=== PATIENT | female | born 1985 | race Caucasian/White ===

== ENCOUNTER 2020-10-19 11:16 | Outpatient (REF) | payer OTHER, SELFPAY ==
[2020-10-20 09:15] LABS: BV Int Neg Control Negative (Negative); BV Int Pos Control Positive (Positive)
== END 2020-10-19 11:17 | disposition home or self-care (01) ==
LOC: HO.LAB 11:16
PROVIDERS: PCP Hospitalist; Visit Provider Obstetrics & Gynecology
DX: Z01.419 Encounter for gynecological examination (general) (routine) without abnormal findings (principal); G43.109 Migraine with aura, not intractable, without status migrainosus
CPT/HCPCS: 87480; 87510; 87660

== ENCOUNTER 2021-02-01 10:40 | Outpatient (REF) | payer OTHER, SELFPAY ==
[2021-02-01 14:19] LABS: MANUAL DIFF FLAG NO
[2021-02-01 14:21] LABS: Basophils Percent Auto 0.4 % (0-2); Eosinophils Absolute Auto 0.1 X10*3/uL (0.0-0.4); Eosinophils Percent Auto 1.8 % (0-4); Hematocrit 42.7 % (37-47); Imm Gran Abs Auto 0.01 X10*3/uL (0.00-0.03); Imm Gran Pct Auto 0.2 % (0.0-0.4); Lymphocytes Absolute Auto 1.7 X10*3/uL (1.2-4.9); Mean Corpuscular HGB Conc 32.8 g/dl (31.0-35.0); Mean Corpuscular Hemoglobin 27.9 pg (27.0-33.0); Mean Corpuscular Volume 85.2 fL (80-98); Mean Platelet Volume 9.9 fL (9.4-12.3); Monocytes Absolute Auto 0.7 X10*3/uL (0.1-1.2); Monocytes Percent Auto 14.7 % (2-11); Neutrophils Percent Auto 44.9 % (45-73); Platelet Count 265 X10*3/uL (160-400); Red Blood Count 5.01 X10*6/uL (4.20-5.50); White Blood Count 4.6 X10*3/uL (4.8-10.8)
[2021-02-01 14:36] LABS: Glucose Urine UA NEG (NEG); Leukocyte Esterase Urine NEG (NEG); Nitrite Urine NEG (NEG); PH 7.5 (5.0-8.0); Specific Gravity - Urine 1.015 (1.005-1.025); Urine Blood NEG (NEG); Urine Ketones NEG (NEG); Urine Protein NEG (NEG-TRACE)
[2021-02-01 14:40] LABS: Appearance Urine CLEAR; Color Urine YELLOW
[2021-02-01 14:53] LABS: Alanine Aminotransferase 19 U/L (0-31); Albumin Level 4.5 g/dL (3.5-5.0); Alkaline Phosphatase 39 U/L (39-117); Anion Gap 10 (12-20); Aspartate Amino Transferase 17 U/L (5-31); Bilirubin Total 0.6 mg/dL (0.0-1.0); Blood Urea Nitrogen 14 mg/dL (9-16); Calcium 9.9 mg/dL (8.4-10.2); Carbon Dioxide 29 mmol/L (22-29); Chloride 106 mmol/L (96-108); Estimated Glomerular Filt Rate > 60; Glucose Fasting 89 mg/dL (60-99); Potassium 4.8 mmol/L (3.3-5.1); Sodium 140 mmol/L (135-145)
[2021-02-01 15:43] LABS: Folate 19.6 ng/mL (> or = 4.0); Vitamin B12 623 pg/mL (200-900)
== END 2021-02-01 10:41 | disposition home or self-care (01) ==
LOC: HO.WFDLDS 10:40
PROVIDERS: Visit Provider Nurse Practitioner Family
DX: R00.2 Palpitations (principal); R19.00 Intra-abdominal and pelvic swelling, mass and lump, unspecified site
CPT/HCPCS: 36415; 80053; 81003; 82306; 82607; 82746; 84443; 85025

== ENCOUNTER → 2021-02-22 12:56 | Outpatient (REF) | payer OTHER, SELFPAY ==
--- NOTE | 2021-02-22 13:00 | ECG_ITS ---
Hook-up date: 2021-02-22 13:08:00 Duration: 24:55:00 Test Indications: PALPITATIONS Medications: [id number] QRS complexes 3 Ventricular ectopics which represent <1 % of total QRS comp. 10 Supraventricular ectopics which represent <1 % of total QRS comp. * Paced QRS complexs which represent % of total QRS comp. VENTRICULAR ECTOPY 3 Isolated 0 Bigeminal Cycles 0 Couplets 0 Runs 0 Beats in Runs * Beats LONGEST at * BPM at :: -- * Beats FASTEST at * BPM at :: -- SUPRAVENTRICULAR ECTOPY 5 Isolated 0 Couplets 1 Runs 5 Beats in Runs 5 Beats LONGEST at 131 BPM at 06:45:30 2021-02-23 5 Beats FASTEST at 131 BPM at 06:45:30 2021-02-23 HEART RATES 49 MIN at 02:29:18 2021-02-23 74 AVG 128 MAX at 13:41:49 2021-02-22 LONGEST RR 1.3120 secs at 03:17:31 2021-02-23 S-T LEVELS Channel 1 - 128 mm at 13:08:00 2021-02-22 - 128 mm at 13:08:00 2021-02-22 Channel 2 - 128 mm at 13:08:00 2021-02-22 - 128 mm at 13:08:00 2021-02-22 Channel 3 - 128 mm at 03:22:71 -- - 128 mm at 03:22:71 Underlying rhythm is sinus; Average rate 74/min; range 49-128/min; Very rare PACs/PVCs; no sustained arrhythmias; Patient did not report any symptoms in the diary Referred By: Marcela Bear Overread By: SHU PRETTY
== END ==
LOC: HO.CARD 12:56
PROVIDERS: PCP Hospitalist; Visit Provider Nurse Practitioner Family
DX: R00.2 Palpitations (principal)
CPT/HCPCS: 93226

== ENCOUNTER 2021-02-26 09:23 | Outpatient (REF) | payer OTHER, SELFPAY ==
--- NOTE | ~2021-02-26 | US_ITS ---
EXAMINATION: US ABDOMEN LIMITED CLINICAL INFORMATION: Intra-abdominal and pelvic swelling, mass and lump. COMPARISON: None TECHNIQUE: Real-time imaging of the region of concern located in the upper abdominal wall left inferior to the rib cage. FINDINGS: No ultrasound abnormality is seen in the area of palpable abnormality. No hernia, soft tissue mass or fluid collection is seen. US/US abdomen limited IMPRESSION: No abnormality seen by ultrasound.
== END 2021-02-26 09:24 | disposition home or self-care (01) ==
LOC: HO.US 09:23
PROVIDERS: Visit Provider Nurse Practitioner Family
DX: R19.00 Intra-abdominal and pelvic swelling, mass and lump, unspecified site (principal)
CPT/HCPCS: 76705

== ENCOUNTER 2021-03-22 09:00 | Outpatient (REF) | payer OTHER, SELFPAY ==
--- NOTE | ~2021-03-22 | CT_ITS ---
EXAMINATION: CT ABDOMEN AND PELVIS WITH CONTRAST CLINICAL INFORMATION: Abdominal bulge. Rule out hernia. COMPARISON: Abdominal ultrasound 02/26/2021 TECHNIQUE: Multidetector volumetric images were obtained from the superior aspect of the liver through the pubic symphysis following administration 85 mL of Omnipaque 350 intravenous contrast. Sagittal and coronal reformatted images were obtained on the technologist's workstation. Oral contrast: Yes This CT examination was performed using dose optimization techniques as appropriate, variously including the following: *Automated exposure control *Adjustment of mA and/or kV according to patient size (this includes techniques or standardized protocols for targeted exams where dose is matched to indication/reason for exam; i.e. extremities or head) *Use of iterative reconstruction technique DLP: 370 mGy-cm FINDINGS: LUNG BASES: The visualized lung bases are unremarkable. LIVER, GALLBLADDER, AND BILIARY TREE: The liver is normal in size, shape, and attenuation. No focal hepatic lesion or biliary ductal dilatation is present. The gallbladder is unremarkable with no evidence of radiopaque gallstones, gallbladder wall thickening, or obvious pericholecystic inflammatory changes. PANCREAS: Unremarkable. SPLEEN: Unremarkable. ADRENAL GLANDS: Unremarkable. KIDNEYS AND URETERS: The kidneys are normal in size, shape, and attenuation. No hydronephrosis, hydroureter, or calculi seen. No perinephric stranding. BLADDER: Unremarkable. GASTROINTESTINAL TRACT: The small and large bowel are unremarkable. The appendix is unremarkable. ABDOMINAL WALL: There is diastasis of the rectus muscles. There is a small umbilical hernia containing fat. No other hernia is seen. LYMPH NODES: Normal. VASCULAR: Unremarkable. PELVIC VISCERA: Unremarkable. OSSEOUS STRUCTURES: Unremarkable. CT/CT abdomen pelvis w con IMPRESSION: Diastasis of the rectus muscles and small umbilical hernia containing fat. No other hernia is seen.
[2021-03-22] MEDS: iohexoL 350 MG/ML 100 ML INFUS..BTL IV (11:37)
[2021-03-22] MEDS: Barium Sulfate Oral (Mocha) 450 ML ORAL.SUSP 900 ML PO (11:37)
== END 2021-03-22 09:01 | disposition home or self-care (01) ==
LOC: HO.CT 09:00
PROVIDERS: PCP Family Medicine; Visit Provider Family Medicine
DX: R19.00 Intra-abdominal and pelvic swelling, mass and lump, unspecified site (principal)
CPT/HCPCS: 74177; Q9967

== ENCOUNTER → 2021-04-19 11:18 | Outpatient (BNVA) | payer OTHER, SELFPAY | PROVIDERS: PCP Family Medicine; Visit Provider Obstetrics & Gynecology ==

== ENCOUNTER → 2021-05-08 08:54 | Outpatient (BNVA) | payer OTHER, SELFPAY | PROVIDERS: PCP Family Medicine; Referring Provider Family Medicine; Visit Provider Surgery ==

== ENCOUNTER 2021-10-22 09:33 | Outpatient (REF) | payer OTHER, SELFPAY ==
[2021-10-23 09:04] LABS: BV Int Neg Control Negative (Negative); BV Int Pos Control Positive (Positive)
[2021-10-25 05:31] LABS: HPV mRNA E6/E7 rflx Not Detected (Not Detected)
== END 2021-10-22 09:34 | disposition home or self-care (01) ==
LOC: HO.LAB 09:33
PROVIDERS: Visit Provider Advanced Practice Midwife
DX: Z01.411 Encounter for gynecological examination (general) (routine) with abnormal findings (principal); Z11.51 Encounter for screening for human papillomavirus (HPV); G43.109 Migraine with aura, not intractable, without status migrainosus; N89.8 Other specified noninflammatory disorders of vagina; Z20.2 Contact with and (suspected) exposure to infections with a predominantly sexual mode of transmission
CPT/HCPCS: 87480; 87510; 87624; 87660; 88142

== ENCOUNTER 2022-08-30 09:12 | Outpatient (REF) | payer OTHER, SELFPAY ==
[2022-08-30 11:49] LABS: Hematocrit 42.7 % (37.0-47.0); Hemoglobin 14.3 g/dl (12.0-16.0); Mean Corpuscular HGB Conc 33.5 g/dl (31.0-35.0); Mean Corpuscular Hemoglobin 27.9 pg (27.0-33.0); Mean Corpuscular Volume 83.2 fL (80.0-98.0); Platelet Count 306 X10*3/uL (160-400); Red Blood Count 5.13 X10*6/uL (4.20-5.50); Red Cell Distribution Width 11.8 % (11.0-16.0); White Blood Count 5.7 X10*3/uL (4.8-10.8)
[2022-08-30 13:05] LABS: Alanine Aminotransferase 11 U/L (0-31); Albumin Level 4.5 g/dL (3.5-5.0); Alkaline Phosphatase 43 U/L (39-117); Anion Gap 13 (12-20); Aspartate Amino Transferase 12 U/L (5-31); Bilirubin Total 0.8 mg/dL (0.0-1.0); Blood Urea Nitrogen 14 mg/dL (9-16); Calcium 9.8 mg/dL (8.4-10.2); Carbon Dioxide 25 mmol/L (22-29); Chloride 106 mmol/L (96-108); Cholesterol 186 mg/dL; Estimated Glomerular Filt Rate > 60; Glucose Fasting 82 mg/dL (60-99); HDL Cholesterol 73 mg/dL; LDL Cholesterol Calculated 104 mg/dl; Potassium 4.3 mmol/L (3.3-5.1); Sodium 140 mmol/L (135-145); TSH reflex Free T4 0.83 uIU/mL (0.32-4.0); Total Protein 7.1 g/dL (6.5-8.0); Triglycerides 48 mg/dL
== END 2022-08-30 09:13 | disposition home or self-care (01) ==
LOC: HO.WFDLDS 09:12
PROVIDERS: Visit Provider Hospitalist
DX: Z00.00 Encounter for general adult medical examination without abnormal findings (principal)
CPT/HCPCS: 36415; 80053; 80061; 84443; 85027

== ENCOUNTER → 2022-10-29 11:00 | Outpatient (BNVA) | payer OTHER, SELFPAY | PROVIDERS: PCP Hospitalist; Visit Provider Advanced Practice Midwife | DX: Z13.89 Encounter for screening for other disorder (principal) ==

== ENCOUNTER 2023-07-29 16:07 | Outpatient (REF) | payer OTHER, SELFPAY ==
--- NOTE | ~2023-07-29 | MM_ITS ---
EXAMINATION: MM SCREENING DIGITAL BREAST TOMOSYNTHESIS, BILATERAL CLINICAL INFORMATION: Screening. Asymptomatic. COMPARISON: Mammography: There are no prior mammograms for comparison. This is a baseline study. TECHNIQUE: Digital breast tomosynthesis is performed in both the craniocaudal and mediolateral oblique views along with computer-aided detection (CAD). Synthesized 2D images are generated from the tomosynthesis. FINDINGS: The breasts are heterogeneously dense, which may obscure small masses (ACR BI-RADS breast composition Category c). There are no significant masses, abnormal calcifications, or other abnormalities. MM/MM tomosynthesis screening BI IMPRESSION: No mammographic evidence of malignancy. ASSESSMENT: BI-RADS BI-RADS 1 - Negative RECOMMENDATION: Routine annual mammography screening. 1 year F/U This examination should not preclude the clinical evaluation of a suspicious palpable abnormality. This patient's information was entered into a reminder system with a target due date for their next mammogram.
== END 2023-07-29 16:08 | disposition home or self-care (01) ==
LOC: HO.MAMMO 16:07
PROVIDERS: Visit Provider Hospitalist
DX: Z12.31 Encounter for screening mammogram for malignant neoplasm of breast (principal)
CPT/HCPCS: 77063; 77067

== ENCOUNTER → 2023-07-29 16:30 | Outpatient (BNV) | payer OTHER, SELFPAY | PROVIDERS: Visit Provider Radiology Diagnostic Radiology | DX: Z12.31 Encounter for screening mammogram for malignant neoplasm of breast (principal) | CPT/HCPCS: 77063; 77067 ==

== ENCOUNTER 2023-10-31 09:02 | Outpatient (AMB) | payer OTHER, SELFPAY ==
[2023-10-31 09:04] VITALS: BP 112/62; BMI 24.0
--- NOTE | 2023-10-31 09:04 | A.OFFVIS_ITS ---
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 Allergies No Known Allergies [No Known Allergies*] Allergy (Verified 10/31/23 09:04) Medication List - Last Reconciled 10/31/23 by Sridevi Le CNM norethindrone (contraceptive) 0.35 mg PO DAILY Is last menstrual period known: Yes Last menstrual period: 10/31/23 Do you need a note to return to daycare/school/sports/work: No HPI 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 After that that maybe long and be unusual it is always related to a missed pill which 99% of the time she is very good about. She is very careful about prevention if that occurs and she does not feel she is at risk at all She lifts weights and eats well and is healthy. Every now and then she has had pain in her axilla that was of concern for her and she talk to her primary or someone she saw an urgent care and then she called and got her mammogram soon after she turned 38 and was assured that everything was totally fine and there was no worrisome finding other than a note that she has dense breasts. That is of some concern to her but she has no family history or close family history of breast cancer. Her primary care provider left so she is trying to figure out where she wants to go for primary care. Her last Pap smear was normal and she has never had an abnormal 1 she has no concerns whatsoever about infection and no abnormal discharge. she is bleeding now this is when her period would of been due it is dark old blood. Also she sometimes gets migraines with ocular features but they are not very often and she manages them and has not seen the need for further evaluation or treatment. 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 Current occupational exposures/hazards: No Sexual orientation: Straight/Heterosexual Gender identity: Female Female Reproductive History Menstrual Age of Menarche: 14 Duration of menses: 3-5 days Date of last menstrual period: 10/31/23 control method: pills Total pregnancies: 2 Full term: 2 Date of last pap smear: 10/23/21 (negative, previous pap 2017,neg.) History of abnormal pap smear: No Physical Exam Vital Signs: Last Vital Signs BP 112/62 10/31/23 09:04 BMI result Body Mass Index 24.0 Const General: healthy appearing, comfortable, no acute distress, well developed and alert Nutritional Appearance: average body habitus Orientation/consciousness: patient oriented x3 Limitations: no limitations HEENT Head: Yes normocephalic Neck Neck: Yes normal visual inspection Chest Chest palpation & inspection: normal inspection of the chest Breast/axilla inspection: normal inspection of the breasts and normal inspection of the axillae Breast/axilla palpation: normal palpation of the breasts and normal palpation of the axillae Resp Effort & Inspection: normal respiratory effort GI Inspection: Yes normal to inspection, No Abdominal wall edema and No distended Palpation (GI): Soft to palpation and nontender Other: Normal speculum exam vagina pink moist with dark brown menstrual bleeding. Cervix multiparous posterior uterus small anteverted mobile nontender adnexa nontender good tone with Kegel General: Yes bladder normal to palpation External Female Exam: normal external appearance and normal appearance of the urethra Speculum Exam - Vagina: normal appearance of the vagina, normal palpation and normal vaginal discharge Speculum Exam - Cervix: normal appearance of the cervix, normal palpation and nontender Bimanual exam- vagina & uterus: normal bimanual exam, normal palpation, uterine size normal, bladder normal to palpation, consistency normal, normal palpation, uterine mobility normal, uterine shape normal, No Cervical tenderness present, non-tender and no cervical motion tenderness Bimanual Exam- Adnexa, other: normal adnexae, no masses, normal and No adnexal tenderness Neuro General: patient oriented x3 Assessment & Plan Assessment & Plan (1) Well woman exam with routine gynecological exam: Code(s): Z01.419 - Encounter for gynecological examination (general) (routine) without abnormal findings (2) Surveillance for control, oral contraceptives: Code(s): Z30.41 - Encounter for surveillance of contraceptive pills (3) Cervical cancer screening: Comment: 10/22/2021 Pap equals negative, negative HPV Code(s): Z12.4 - Encounter for screening for malignant neoplasm of cervix (4) control counseling: Code(s): Z30.09 - Encounter for other general counseling and advice on contraception (5) Breast cancer screening: Code(s): Z12.39 - Encounter for other screening for malignant neoplasm of breast Plan -----Discussed in this visit the following: healthy balanced diet, regular and consistent exercise, getting recommended health screens, doing the best she can for her particular health concerns, kegel exercises, pap smear screening and f ollowup recommendations, mammography screening and SBE, normal changes in cycles in her life stage--- . Reviewed the pills she has been getting them every month at the pharmacy but I have prescribed them in 3 month increments it may be related to her insurance and she is going to check that out. I refilled her prescription again three-month increments with 4 refills. Discussed the possibilities to explain her discomfort in her axilla she has been trying to pay attention it seems to happen regardless of weight lifting which is what she was thinking might BV issue she also sleeps with her right arm above her head in wonders if that may be related she does not have any other arm pain or shoulder pain and the pain is described as an ache which sounds more consistent with an nerve pain discussed the possible positioning connection. Meanwhile she did get her mammogram discussed that usually if there has no close family history of cancer or any other high-risk concern other studies would not be recommended necessarily. She is going to be continuing her search for a primary care provider. Medications: Refilled norethindrone (contraceptive) start day 1 of menstrual cycle 0.35 mg PO DAILY 84 tabs 4RF G43.109 - Migraine with aura, not intractable, without status migrainosus, Z30.09 - Encounter for other general counseling and advice on contraception Coding Level of Care Code Est Pt Prev Care 40-64y(08237) Diagnoses Well woman exam with routine gynecological exam Z01.419 Surveillance for control, oral contraceptives Z30.41 Cervical cancer screening Z12.4 control counseling Z30.09 Breast cancer screening Z12.39
== END 2023-10-31 10:09 | disposition home or self-care (01) ==
LOC: HO.HWSM 09:02
PROVIDERS: Visit Provider Advanced Practice Midwife
DX: Z01.419 Encounter for gynecological examination (general) (routine) without abnormal findings (principal); Z30.41 Encounter for surveillance of contraceptive pills; Z12.4 Encounter for screening for malignant neoplasm of cervix; Z30.09 Encounter for other general counseling and advice on contraception; Z12.39 Encounter for other screening for malignant neoplasm of breast
CPT/HCPCS: 99396

== ENCOUNTER → 2023-10-31 09:02 | Outpatient (BNVA) | payer OTHER, SELFPAY | PROVIDERS: Visit Provider Advanced Practice Midwife ==

== ENCOUNTER 2024-05-21 15:42 | Outpatient (AMB) | payer OTHER, SELFPAY ==
--- NOTE | 2024-05-21 15:55 | A.OFFPC_ITS ---
Vital Signs 05/21/24 15:57 Height 5 ft 5 in Weight 148 lb BMI 24.6 BP 122/60 Blood Pressure Location Rt brachial Position Sitting Respiration 12 Pulse 78 Pulse Source Pulse Oximeter Pulse Oximetry (%) 100 Oxygen Delivery Method Room Air Intake Visit Reasons: SD/SV/Annual Exam Intake Note: Patient reports she has been getting muscle cramping in bilateral lower and upper legs. Patient reports feeling pain under her arms- armpit area. Patient reports she would like yearly labs ordered to check vitamins. 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 Accompanied by: Self / Same As Patient Allergies No Known Allergies [No Known Allergies*] Allergy (Verified 05/21/24 15:59) Tobacco use date assessed: 05/21/24 Dental Screening Dental Screen Date: 05/21/24 Did you have a dental visit in the last 12 months?: Yes Did you have a dental problem in the last 6 months where you did not have access to dental care?: No Was dental information given to patient?: Patient has dentist HPI HPI Comments History of Present Illness Details 39 year old female with a past medical h istory of migraines presenting to [facility] care Concerns -Reports muscle cramping in bilateral lo wer and upper legs. Not restless. Crampy, sore. No significant spasms. Has chronic low back discomfort, not severe. No numbness, tingling or weakness in the legs/feet -Patient reports feeling fullness and pa in in her underarms. Denies pimples, cysts or drainage -Patient reports that menses have change d over the past few years. She gets more pain, more clotting. Still menstruating monthly Her pediatric assistant left the practice because they closed. She would like a new referral Her mammogram is up to date ROS see HPI PHYSICAL EXAM: GENERAL: Alert and oriented x 3. NAD EYES: EOMI. Anicteric. HENT: Moist mucous membranes. No scleral icterus. No cervical lymphadenopathy. LUNGS: Clear to auscultation bilaterally. CARDIOVASCULAR: Regular rate and rhythm. No murmur. No JVD. ABDOMEN: Soft, non-tender +bs EXTREMITIES: No edema. Non-tender. SKIN: There is axillary fullness and heterogeneity. No skin infection NEUROLOGIC: No focal neurological deficits. CN II-XII grossly intact PSYCHIATRIC: Cooperative. Appropriate mood and affect. 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 1. Little interest or pleasure in doing things: not at all 2. Feeling down, depressed, or hopeless: not at all 3. Trouble falling or staying asleep, or sleeping too much: not at all 4. Feeling tired or having little energy: not at all 5. Poor appetite or overeating: not at all 6. Feeling bad about yourself - or that you are a failure or have let yourself or your family down: not at all 7. Trouble concentrating on things, such as reading the newspaper or watching television: not at all 8. Moving or speaking so slowly that other people could have noticed. Or the opposite - being so fidgety or restless that you have been moving around a lot more than usual: not at all 9. Thoughts that you would be better off or of hurting yourself in some way: not at all Total score: 0 Depression Screening Interpretation: Negative Depression Screening Done: Yes 14719 - PHQ-9 Billing: Yes Source: Developed by Drs. Burt Magana, Teressa Bernard, Cesar Greenfield and colleagues, with an educational fatoumata from [employer]. Thrive Questionnaire Date Thrive assessed: 05/20/24 I am a: Patient What is your living situation today?: I have a steady place to live Within the past 12 months, did the food you bought not last and you didn't have the money to get more?: Never true Within the past 12 months, did you worry whether your food would run out before you got money to buy more?: Never true Do you have trouble paying for medicines?: No Do you have trouble getting transportation to medical appointments?: No Do you have trouble paying your heating and electricity bill?: No Do you have trouble taking care of your child, family member or friend?: No Do you have trouble with day-to-day activities such as bathing, preparing meals, shopping, managing finances, etc.?: No Are you currently unemployed and looking for a job?: No Are you interested in more education?: No Please select the resources that you would like help with: None Currently or been in a relationship where the following occur: No concerns reported THRIVE Score: 0 AUDIT C Alcohol Use Questionnaire (AUDIT-C) 1. How often do you have a drink containing alcohol?: 2-4 times a month 2. How many drinks containing alcohol do you have on a typical day when you are drinking?: 1 or 2 3. How often do you have six or more drinks on one occasion?: Never Total Score: 2 ANNABELLE-7 AMB Questionnaire ANNABELLE-7 Feeling nervous, anxious, or on edge: 0 = Not at all Not being able to stop or control worryin = Not at all Worrying too much about different things: 0 = Not at all Trouble relaxin = Not at all Being so restless that it is hard to sit still: 0 = Not at all Becoming easily annoyed or irritable: 0 = Not at all Feeling afraid as if something awful might happen: 0 = Not at all Total ANNABELLE-7 score (0-4 normal; 5-9 mild; 10-14 moderate; 15-21 severe): 0 Source: Developed by Drs. Burt Magana, Teressa Bernard, Cesar Greenfield and colleagues, with an educational fatoumata from [employer]. Physical exam (Primary Care) Vital Signs: Last Vital Signs Pulse 78 05/21/24 15:57 Resp 12 05/21/24 15:57 BP 122/60 05/21/24 15:57 Pulse Ox 100 05/21/24 15:57 Oxygen Delivery Method Room Air 05/21/24 15:57 BMI result Body Mass Index 24.6 Tobacco/Smoking Status: Tobacco use Status Tobacco use date assessed 05/21/24 05/21/24 16:03 Patient Tobacco Use Status Never used Tobacco 05/21/24 15:57 e-Cigarette/Vaping Use Never Used 05/21/24 16:03 PHQ-9: PHQ-9 Score PHQ-9: Total score 0 05/25/24 12:41 Depression Screening Interpretation: Negative Thrive Assessment: Date of Thrive Assessment Date Thrive assessed 05/20/24 05/21/24 15:57 Currently or been in a relationship where the following occur: No concerns reported Assessment and Plan Assessment & Plan (1) Encounter to establish care: Code(s): Z76.89 - Persons encountering health services in other specified circumstances Plan: 39 year old female presenting to establish care. Past medical, surgical, social and family history reviewed. Concerns addressed, work up (2) Abnormal menses: Code(s): N92.6 - Irregular menstruation, unspecified Plan: Pelvis u/s ordered. referral to science teacher (3) Leg cramps: Code(s): R25.2 - Cramp and spasm Plan: Labs ordered. Lumbar xray ordered Orders: Orders Complete Blood Count Auto Diff Today M54.50 - Low back pain, unspecified, M79.661 - Pain in right lower leg, M79.662 - Pain in left lower leg, R25.2 - Cramp and spasm Hemoglobin A1c Today M54.50 - Low back pain, unspecified, M79.661 - Pain in right lower leg, M79.662 - Pain in left lower leg, R25.2 - Cramp and spasm IRON PROFILE Today M54.50 - Low back pain, unspecified, M79.661 - Pain in right lower leg, M79.662 - Pain in left lower leg, R25.2 - Cramp and spasm XR lumbar spine 2-3V 05/21/24 M54.50 - Low back pain, unspecified, M79.661 - Pain in right lower leg, M79.662 - Pain in left lower leg, R25.2 - Cramp and spasm TSH reflex Free T4 Today N92.6 - Irregular menstruation, unspecified US chest 05/21/24 M79.621 - Pain in right upper arm, M79.622 - Pain in left upper arm Comprehensive Met. Panel Today M54.50 - Low back pain, unspecified, M79.661 - Pain in right lower leg, M79.662 - Pain in left lower leg, R25.2 - Cramp and spasm Lipid Panel Today M54.50 - Low back pain, unspecified, M79.661 - Pain in right lower leg, M79.662 - Pain in left lower leg, R25.2 - Cramp and spasm Magnesium Today M54.50 - Low back pain, unspecified, M79.661 - Pain in right lower leg, M79.662 - Pain in left lower leg, R25.2 - Cramp and spasm Creatine Kinase Total Today M54.50 - Low back pain, unspecified, M79.661 - Pain in right lower leg, M79.662 - Pain in left lower leg, R25.2 - Cramp and spasm pelvic and transvaginal 05/21/24 N92.6 - Irregular menstruation, unspecified Coding Level of Care Code New Pt Level 4 (19597) Complex EM visit Add On G2211 Diagnoses Encounter to establish care Z76.89 Abnormal menses N92.6 Leg cramps R25.2
[2024-05-21 15:57] VITALS: BP 122/60; PULSE 78; RESP 12; O2SAT 100; BMI 24.6
== END 2024-05-21 16:49 | disposition home or self-care (01) ==
PROVIDERS: PCP Family Medicine; Visit Provider Internal Medicine
DX: Z76.89 Persons encountering health services in other specified circumstances (principal); N92.6 Irregular menstruation, unspecified; R25.2 Cramp and spasm
CPT/HCPCS: 99204

== ENCOUNTER 2024-05-25 07:40 | Outpatient (REF) | payer OTHER, SELFPAY ==
[2024-05-25 11:11] LABS: MANUAL DIFF FLAG NO
[2024-05-25 11:17] LABS: Basophils Percent Auto 0.4 % (0-2); Eosinophils Absolute Auto 0.1 X10*3/uL (0.0-0.4); Eosinophils Percent Auto 2.1 % (0-4); Hemoglobin 13.8 g/dl (12.0-16.0); Imm Gran Abs Auto 0.02 X10*3/uL (0.00-0.03); Imm Gran Pct Auto 0.4 % (0.0-0.4); Lymphocytes Absolute Auto 1.4 X10*3/uL (1.2-4.9); Lymphocytes Percent Auto 27.3 % (20-40); Mean Corpuscular HGB Conc 33.7 g/dl (31.0-35.0); Mean Corpuscular Hemoglobin 28.2 pg (27.0-33.0); Mean Corpuscular Volume 83.8 fL (80.0-98.0); Mean Platelet Volume 9.4 fL (9.4-12.3); Monocytes Absolute Auto 0.5 X10*3/uL (0.1-1.2); Monocytes Percent Auto 9.6 % (2-11); Neutrophils Absolute Auto 3.1 x10*3/uL (2.0-8.3); Neutrophils Percent Auto 60.2 % (45-73); Platelet Count 245 X10*3/uL (160-400); Red Blood Count 4.89 X10*6/uL (4.20-5.50); Red Cell Distribution Width 11.9 % (11.0-16.0); White Blood Count 5.2 X10*3/uL (4.8-10.8)
[2024-05-25 11:29] LABS: Estimated Average Glucose 103 mg/dL; Hemoglobin A1c % 5.2 % (<6.0)
[2024-05-25 12:22] LABS: Alanine Aminotransferase 12 U/L (0-31); Albumin Level 4.2 g/dL (3.5-5.0); Alkaline Phosphatase 38 U/L (39-117); Anion Gap 11 (12-20); Aspartate Amino Transferase 13 U/L (5-31); Bilirubin Total 0.7 mg/dL (0.0-1.0); Blood Urea Nitrogen 12 mg/dL (9-16); Calcium 9.4 mg/dL (8.4-10.2); Carbon Dioxide 25 mmol/L (22-29); Chloride 105 mmol/L (96-108); Cholesterol 178 mg/dL (<200); Estimated Glomerular Filt Rate > 60; Glucose Random 75 mg/dL (60-115); HDL Cholesterol 72 mg/dL (>40); Iron 149 mcg/dL (30-160); LDL Cholesterol Calculated 99 mg/dL (<100); Magnesium 1.9 mg/dL (1.6-2.6); Percent Iron Saturation 53 % (15-50); Potassium 3.8 mmol/L (3.3-5.1); Sodium 137 mmol/L (135-145); TSH reflex Free T4 0.64 uIU/mL (0.32-4.0); Total Iron Binding Capacity 279 mcg/dL (228-428); Total Protein 6.8 g/dL (6.5-8.0); Triglycerides 37 mg/dL (<150); Unsaturated Iron Binding 130 ug/dL
== END 2024-05-25 07:41 | disposition home or self-care (01) ==
LOC: HO.WFDLDS 07:40
PROVIDERS: Visit Provider Internal Medicine
DX: M79.661 Pain in right lower leg (principal); M79.662 Pain in left lower leg; N92.6 Irregular menstruation, unspecified; R25.2 Cramp and spasm; M54.50 Low back pain, unspecified; E83.19 Other disorders of iron metabolism
CPT/HCPCS: 36415; 80053; 80061; 81256; 82550; 83036; 83540; 83735; 84443; 85025

== ENCOUNTER 2024-06-02 11:21 | Outpatient (REF) | payer OTHER, SELFPAY ==
--- NOTE | ~2024-06-02 | US_ITS ---
EXAMINATION: US PELVIS COMPLETE CLINICAL INFORMATION: N92.6 - Irregular menstruation, unspecified COMPARISON: None TECHNIQUE: Transabdominal and transvaginal imaging was performed. FINDINGS: The uterus is of normal size and echogenicity measuring 12.2 x 5.4 x 7.9 cm. A regular homogeneous endometrium is identified measuring 1.2 cm. Nabothian cysts in the cervix. The right ovary measures 5.5 x 2.6 x 5.2 cm. The right ovary is unremarkable for a 4.3 cm unilocular simple ovarian cyst, no follow-up imaging recommended. The left ovary was not identified sonographically, per bailiff report surgically absent. There is no pelvic free fluid. US/US pelvic and transvaginal IMPRESSION: * Unremarkable sonographic appearance of the uterus. * The left ovary was not identified sonographically, per bailiff report surgically absent. A 4.3 cm unilocular simple ovarian right cyst, no follow-up imaging recommended. Electronically signed by: Avis Guerra MD 06/07/2024 07:32 PM EDT
== END 2024-06-02 11:22 | disposition home or self-care (01) ==
LOC: HO.US 11:21
PROVIDERS: PCP Family Medicine; Visit Provider Internal Medicine
DX: N92.6 Irregular menstruation, unspecified (principal)
CPT/HCPCS: 76830; 76856

== ENCOUNTER 2024-06-08 13:52 | Outpatient (REF) | payer OTHER, SELFPAY ==
--- NOTE | ~2024-06-08 | US_ITS ---
EXAMINATION: Ultrasound extremity nonvascular CLINICAL INFORMATION: Bilateral axillary fullness. COMPARISON: No similar priors. TECHNIQUE: Targeted evaluation of the area of clinical concern within the bilateral axillary regions. FINDINGS: No discrete abnormality in the right axillary region. In the left axillary region, there is a 1.7 x 1.1 x 0.8 cm nonaggressive appearing lymph node with reniform shape, preserved fatty judie and normal appearing cortex. US/US extremity nonvascular gautam IMPRESSION: 1. No discrete abnormality in the right axillary region. 2. Normal-appearing lymph node in the left axillary region, most likely reactive in nature. Recommend clinical correlation and attention on follow-up as warranted. Electronically signed by: Flor Castanon MD 06/10/2024 03:59 PM EDT
== END 2024-06-08 13:53 | disposition home or self-care (01) ==
LOC: HO.US 13:52
PROVIDERS: PCP Family Medicine; Visit Provider Internal Medicine
DX: M79.621 Pain in right upper arm (principal); M79.622 Pain in left upper arm
CPT/HCPCS: 76882

== ENCOUNTER 2024-07-09 09:50 | Outpatient (REF) | payer OTHER, SELFPAY ==
--- NOTE | ~2024-07-09 | XR_ITS ---
EXAMINATION: XR LUMBOSACRAL SPINE CLINICAL INFORMATION: Right lower extremity pain. COMPARISON: None available. TECHNIQUE: Three views of the lumbosacral spine. FINDINGS: Rudimentary ribs, T12. No acute cortical disruption or malalignment. No lytic or blastic lesions. Mild S-shaped curvature of the lower lumbar spine. XR/XR lumbar spine 2-3V IMPRESSION: No acute fracture or listhesis. Electronically signed by: Sly Gillette MD 07/09/2024 10:42 AM EDT
== END 2024-07-09 09:51 | disposition home or self-care (01) ==
LOC: HO.XRAY 09:50
PROVIDERS: PCP Internal Medicine; Visit Provider Internal Medicine
DX: M79.661 Pain in right lower leg (principal); M79.662 Pain in left lower leg; R25.2 Cramp and spasm; M54.50 Low back pain, unspecified
CPT/HCPCS: 72100

== ENCOUNTER → 2024-07-09 09:55 | Outpatient (BNV) | payer OTHER, SELFPAY | PROVIDERS: PCP Internal Medicine; Visit Provider Radiology Diagnostic Radiology | DX: M79.606 Pain in leg, unspecified (principal) | CPT/HCPCS: 72100 ==

== ENCOUNTER → 2024-07-16 16:34 | Outpatient (BNVA) | payer OTHER, SELFPAY | PROVIDERS: PCP Internal Medicine; Visit Provider Internal Medicine ==

== ENCOUNTER → 2024-07-16 16:34 | Outpatient (AMB) | payer OTHER, SELFPAY ==
--- NOTE | 2024-07-16 16:33 | A.OFFPC_ITS ---
Intake Visit Reasons: Discuss xray Allergies No Known Allergies [No Known Allergies*] Allergy (Verified 05/21/24 15:59) Tobacco use date assessed: 05/21/24 Dental Screening Dental Screen Date: 05/21/24 HPI HPI Comments History of Present Illness Details 39 year old female with a past medical h istory of migraines, muscle cramping, presenting for follow up At her last visit she had the following concerns -Reports muscle cramping in bilateral lo wer and upper legs. Not restless. Crampy, sore. No significant spasms. Has chronic low back discomfort, not severe. No numbness, tingling or weakness in the legs/feet-she had xray of the lumbar spine performed. This was normal with the exception of mild lumbosacral curvature. -Patient reports feeling fullness and pa in in her underarms. Denies pimples, cysts or drainage. Her ultrasound showed a slightly enlarged but morphologically normal lymph node -Patient reports that menses have change d over the past few years. She gets more pain, more clotting. Still menstruating monthly. She had pelvic ultrasound with benign right ovary cyst and non visualization of the left ovary. 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 at her last visit Her mammogram is up to date ROS see HPI PHYSICAL EXAM: telehealth [facility] Medical History Migraine headache with aura Asthma Surgical History Dermoid cyst History of left oophorectomy Family History Father HTN (hypertension) Pacemaker Mother HTN (hypertension) Maternal Grandfather Colon cancer Social History Housing: House Alcohol intake: current Alcohol intake frequency: a few times a week Patient Tobacco Use Status: Never used Tobacco e-Cigarette/Vaping Use: Never Used service: No Current occupational status: employed 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 Current occupational exposures/hazards: No Sexual orientation: Straight/Heterosexual Gender identity: Female Cognitive needs: No Hearing needs: No Vision needs: No Female Reproductive History Menstrual Age of Menarche: 14 Questionnaire Thrive Questionnaire Date Thrive assessed: 05/20/24 I am a: Patient What is your living situation today?: I have a steady place to live Within the past 12 months, did the food you bought not last and you didn't have the money to get more?: Never true Within the past 12 months, did you worry whether your food would run out before you got money to buy more?: Never true Do you have trouble paying for medicines?: No Do you have trouble getting transportation to medical appointments?: No Do you have trouble paying your heating and electricity bill?: No Do you have trouble taking care of your child, family member or friend?: No Do you have trouble with day-to-day activities such as bathing, preparing meals, shopping, managing finances, etc.?: No Are you currently unemployed and looking for a job?: No Are you interested in more education?: No Please select the resources that you would like help with: None Currently or been in a relationship where the following occur: No concerns reported THRIVE Score: 0 Physical exam (Primary Care) Tobacco/Smoking Status: Tobacco use Status Tobacco use date assessed 05/21/24 07/16/24 16:33 Patient Tobacco Use Status Never used Tobacco 07/16/24 16:33 e-Cigarette/Vaping Use Never Used 07/16/24 16:33 Thrive Assessment: Date of Thrive Assessment Date Thrive assessed 05/20/24 07/16/24 16:33 Currently or been in a relationship where the following occur: No concerns reported Telehealth Telehealth Telehealth Platform: [facility] Location of provider rendering services: practice address Location of patient: address on file Patient Identification confirmed using: Name, : Yes Telehealth method: voice only Patient verbally consented to treatment: Yes Patient verbally consented to billing insurance company: Yes Patient informed of any privacy concerns related to visit: Yes Minutes spent on Phone/Video with Pt.: 33 Coding Level of Care Code Est Pt Level 4 (80534) Diagnoses Leg cramps R25.2 Pain in left axilla M79.622 Assessment & Plan Assessment & Plan (1) Leg cramps: Code(s): R25.2 - Cramp and spasm Category: Medical Plan: Discussed unlike due to low back curvature. Did encourage visit with chiropractor for consultation (2) Pain in left axilla: Code(s): M79.622 - Pain in left upper arm Category: Medical Plan: Resolved. Can repeat imaging if swelling recurs
== END ==
LOC: HO.HMCFM 16:34
PROVIDERS: PCP Internal Medicine; Visit Provider Internal Medicine
DX: R25.2 Cramp and spasm (principal); M79.622 Pain in left upper arm

== ENCOUNTER 2024-08-25 14:33 | Outpatient (REF) | payer OTHER, SELFPAY | END 2024-08-25 14:34 | disposition home or self-care (01) | LOC: HO.MAMMO 14:33 | PROVIDERS: PCP Internal Medicine; Visit Provider Internal Medicine | DX: Z12.31 Encounter for screening mammogram for malignant neoplasm of breast (principal) | CPT/HCPCS: 77063; 77067 ==

== ENCOUNTER → 2024-08-25 14:45 | Outpatient (BNV) | payer OTHER, SELFPAY | PROVIDERS: PCP Internal Medicine; Visit Provider Internal Medicine | DX: Z12.31 Encounter for screening mammogram for malignant neoplasm of breast (principal) | CPT/HCPCS: 77063; 77067 ==

== ENCOUNTER 2024-12-24 09:05 | Outpatient (AMB) | payer OTHER, SELFPAY ==
--- NOTE | 2024-12-24 09:07 | MHC.OFFVIS ---
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 She has been getting 3 menopausal symptoms in particular she just breaks out in lots of perspiration in the middle of the night it was so bad the other night it soaked the bed and she took a picture of it.. She also had had some concerns over the past year with some pain in her axilla and she had had some extra lab work done ordered by her primary care provider screening for various concerns and she also had her mammogram done and a breast ultrasound done as well because of her concerns that possibly something was presenting in that way she has been investigating all of her symptoms and trying to figure out any common denominators and was concerned about the possibility of an undiagnosed cancer of some sort either breast or lymphoma or something. She had had lots of blood work done with her primary which showed that she had a high iron and so she even went for genetic screening to see if she might have the gene for hemochromatosis but that also was negative. She has not experienced vaginal dryness but the night sweats are alarming. In addition her periods are changing somewhat she had a period in the beginning of November that was almost 2 weeks long though it was not very heavy and now she is late with her period. 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 Current occupational exposures/hazards: No Sexual orientation: Straight/Heterosexual Gender identity: Female Cognitive needs: No Hearing needs: No Vision needs: No Female Reproductive History Menstrual Age of Menarche: 14 Duration of menses: >10 days Date of last menstrual period: 12/14/24 control method: pills Total pregnancies: 2 Full term: 2 Date of last pap smear: 10/22/21 (negative pap smear, negative hpv) History of abnormal pap smear: No History of STI: No Date of Mammogram: 08/25/24 (bi rad 1) History of abnormal mammogram: No Physical Exam Vital Signs: Last Vital Signs BP 122/68 12/24/24 09:31 BMI result Body Mass Index 25.0 Const General: healthy appearing, comfortable, no acute distress, well developed and alert Nutritional Appearance: average body habitus Orientation/consciousness: patient oriented x3 Limitations: no limitations HEENT Head: Yes normocephalic Neck Neck: Yes normal visual inspection Chest Chest palpation & inspection: normal inspection of the chest Breast/axilla inspection: normal inspection of the breasts and normal inspection of the axillae Breast/axilla palpation: normal palpation of the breasts and normal palpation of the axillae Resp Effort & Inspection: normal respiratory effort GI Inspection: Yes normal to inspection, No Abdominal wall edema and No distended Palpation (GI): Soft to palpation and nontender Other: External exam within normal limits vagina pink and moist normal-appearing whitish mucus. Cervix multiparous pink smooth mobile nontender uterus midposition mobile nontender adnexa not enlarged nontender very good muscle tone. General: Yes bladder normal to palpation External Female Exam: normal external appearance and normal appearance of the urethra Speculum Exam - Vagina: normal appearance of the vagina, normal palpation and normal vaginal discharge Speculum Exam - Cervix: normal appearance of the cervix, normal palpation and nontender Bimanual exam- vagina & uterus: normal bimanual exam, normal palpation, uterine size normal, bladder normal to palpation, consistency normal, normal palpation, uterine mobility normal, uterine shape normal, No Cervical tenderness present, non-tender and no cervical motion tenderness Bimanual Exam- Adnexa, other: normal adnexae, no masses, normal and No adnexal tenderness Neuro General: patient oriented x3 Results Reviewed Results Reviewed: Name: Zaira Vasquez Age/Sex: 36/F Attending: Sridevi Le CNM : 1985 Submitted by: Sridevi Le CNM Copies to: MR #: [id number] Status: DEP REF Collected: 10/22/21 Location: .LAB Received: 10/23/21 Interpretation Satisfactory for evaluation. Negative for intraepithelial lesion or malignancy. HPV mRNA E6/E7: NOT DETECTED This assay detects E6/E7 viral messenger RNA (mRNA) from 14 high-risk HPV types (16, 18, 31, 33, 35, 39, 45, 51, 52, 56, 58, 59, 66, 68) HPV testing performed by [facility], [place], [place]. See reference laboratory portion of the EMR for entire report. Clinical Information LMP: Unknown date Previous PAP test: 2016, WNL Material Received ThinPrep- Cervical Electronically Signed By: HAILE May (ASCP) 10/31/21 1556 The Pap Test is a screening procedure with the inherent possibility of both false negative and false positive results. Results should be interpreted in the context of historic and current clinical findings. Reliability of the Pap Test is enhanced by performing the test on a regular repetitive basis. Patient: Zaira Vasquez Patient: Zaira Vasquez MR#: [id number] : 1985 Acct:[id number] Age/Sex: 39 / F ADM Date: 08/25/24 Loc: HO.MAMMO Attending Dr: Paige Cheung MD Ordering Physician: Paige Cheung MD Results: 1Negative Date of Service: 08/25/24 Follow Up: 1 Year From Original Mammogram Procedure(s): MM tomosynthesis screening BI Accession Number(s): [id number] cc: Paige Cheung MD~ EXAMINATION: MM SCREENING DIGITAL BREAST TOMOSYNTHESIS, BILATERAL CLINICAL INFORMATION: Screening. Asymptomatic. COMPARISON: Mammography: Comparison is made with available priors TECHNIQUE: Digital breast mammography with tomosynthesis is performed in both the craniocaudal and mediolateral oblique views along with computer-aided detection (CAD). FINDINGS: The breasts are heterogeneously dense, which may obscure small masses (ACR BI-RADS breast composition Category c). There are no significant masses, abnormal calcifications, or other abnormalities. MM/MM tomosynthesis screening BI IMPRESSION: No mammographic evidence of malignancy. ASSESSMENT: BI-RADS BI-RADS 1 - Negative RECOMMENDATION: Routine annual mammography screening. 1 year F/U This examination should not preclude the clinical evaluation of a suspicious palpable abnormality. This patient's information was entered into a reminder system with a target due date for their next mammogram. 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 FINDINGS: The uterus is of normal size and echogenicity measuring 12.2 x 5.4 x 7.9 cm. A regular homogeneous endometrium is identified measuring 1.2 cm. Nabothian cysts in the cervix. The right ovary measures 5.5 x 2.6 x 5.2 cm. The right ovary is unremarkable for a 4.3 cm unilocular simple ovarian cyst, no follow-up imaging recommended. The left ovary was not identified sonographically, per commercial attorney report surgically absent. There is no pelvic free fluid. US/US pelvic and transvaginal IMPRESSION: * Unremarkable sonographic appearance of the uterus. * The left ovary was not identified sonographically, per commercial attorney report surgically absent. A 4.3 cm unilocular simple ovarian right cyst, no follow-up imaging recommended. 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 Assessment & Plan Assessment & Plan (1) Family planning: Code(s): Z30.09 - Encounter for other general counseling and advice on contraception Category: Social Hx (2) control counseling: Code(s): Z30.09 - Encounter for other general counseling and advice on contraception Category: Medical (3) Cervical cancer screening: Comment: 10/22/2021 Pap equals negative, negative HPV Code(s): Z12.4 - Encounter for screening for malignant neoplasm of cervix Category: Medical (4) Surveillance for control, oral contraceptives: Code(s): Z30.41 - Encounter for surveillance of contraceptive pills Category: Medical (5) Well woman exam with routine gynecological exam: Code(s): Z01.419 - Encounter for gynecological examination (general) (routine) without abnormal findings Category: Medical (6) Breast cancer screening: Code(s): Z12.39 - Encounter for other screening for malignant neoplasm of breast Category: Medical (7) Perimenopausal symptoms: Code(s): N95.1 - Menopausal and female climacteric states Category: Medical (8) Night sweats: Comment: vs hot flashes at night Code(s): R61 - Generalized hyperhidrosis Category: Medical Plan -----Discussed in this visit the following: healthy balanced diet, regular and consistent exercise, getting recommended health screens, doing the best she can for her particular health concerns, kegel exercises, pap smear screening and followup recommendations, mammography screening and SBE, normal changes in cycles in her life stage--- .---Discussed normal changes that happen premenapausally, perimenapausally, and postmenopausally, and ways to handle them. Discussed the normal variation, and the range of experiences that women experience. Discussed nutrition, health, need for exercise, both weight-bearing and aerobic. Also discussed the normal changes that happen with vaginal mucosal thinning and sensitivity, and simple more natural ways of handling these challenges. -----reviewed the control pills she has doing fairly well on them reviewed again why she would not be a candidate for an estrogen based control pill her reviewed all of her edgar menopausal symptoms and other concerns and other screens that she has had done to make sure that she is not missing anything that could possibly be detected.. Particular we reviewed her history of axillary pain and the screens and testing she had done mammographically and ultrasound to make sure that nothing was being missed there discussed that she was told that she has dense breasts and what to do about them and that it is challenging and that MRIs might visualize more but are not generally reimbursed covered by insurances and she had had the same discussion she says with her primary care provider. Discussed also her findings in her hematology and chemistry testings including her , very slightly elevated iron levels and her normal TSH and other screens discussed that it would not make says it has to order if follicle-stimulating hormone test at this point as she is menstruating somewhat regularly and it is not going to be of any use. Discussed that it is chapman to follow-up anything that she is concerned about a discussed that I am currently not prescribing HRT and that the newer medications being promoted for hot flashes are more of a centrally acting medication that would be more in the realm of primary care. She is actually not really interested in taking anymore medications other than the control pills that she is on at the moment anyway Reviewed the other physical ways of handling hot flashes including cotton bed clothing layers sleeping with a towel etc.. Refills sent on her control pills. Medications: Refilled norethindrone (contraceptive) 0.35 mg PO DAILY 84 days 84 tabs 4RF Coding Level of Care Code Est Pt Prev Care 40-64y(54318) Diagnoses Family planning Z30.09 control counseling Z30.09 Cervical cancer screening Z12.4 Surveillance for control, oral contraceptives Z30.41 Well woman exam with routine gynecological exam Z01.419 Breast cancer screening Z12.39 Perimenopausal symptoms N95.1 Night sweats R61
--- OUTSIDE RECORDS SUMMARY | 2024-12-24 09:24 | XMS_ITS | Clinical Summary ---
Author Organization [facility] Address [address] [place] [id number] Care Team Providers Care Editor At Large Name Role Phone Pcp, No Primary Care Provider Unavailabl e Allergies No known active allergies Social History Tobacco Use Types Packs/Day Years Used Date Smoking Tobacco: Never Assessed Sex and Gender Information Value Date Recorded Sex Assigned at Not on file Gender Identity Not on file Sexual Orientation Not on file Last Filed Vital Signs Vital Sign Reading Time Taken Comments Blood Pressure 125/76 10/10/2020 11:34 AM EST Pulse 89 10/10/2020 11:34 AM EST Temperature 36.8 ??C (98.3 ??F) 10/10/2020 11:[address] Respiratory Rate - - Oxygen Saturation 98% 10/10/2020 11:34 AM EST Inhaled Oxygen Concentration - - Weight 67.1 kg (148 lb) 10/10/2020 11:34 AM EST Height 165.1 cm (5' 5 ) 10/10/2020 11:34 AM EST Body Mass Index 24.63 10/10/2020 11:34 AM EST Plan of Treatment Health Maintenance Due Date Last Done Comments Hepatitis C Virus Screening 1985 HIV Screening 1996 DTaP/Tdap/Td Vaccines (1 - Tdap) 2002 Hepatitis B Vaccines (1 of 3 - 19+ 3-dose series) 2002 Pap Smear (Ages 21-65) 2004 Mammogram 2023 Influenza Vaccine 04/15/2024 COVID-19 Vaccine ( - 2023-2 5 season) 2024 HPV Vaccines Aged Out No longer eligi ble based on patient's age to complete this topic Pneumococcal Vaccine: Pediat shruti (0-5 Years) and At-Risk Patients (6 to 49 Years) Aged Out No longer eligible b ased on patient's age to complete this topic Care Teams Editor At Large Relationship Specialty Start Date End Date Pcp, No PCP - General General Medicine 10/02/20
[2024-12-24 09:31] VITALS: BP 122/68; BMI 25.0
== END 2024-12-24 10:25 | disposition home or self-care (01) ==
LOC: HO.HWS 09:05
PROVIDERS: PCP Internal Medicine; Visit Provider Advanced Practice Midwife
DX: Z01.419 Encounter for gynecological examination (general) (routine) without abnormal findings (principal); N95.1 Menopausal and female climacteric states; R61 Generalized hyperhidrosis
CPT/HCPCS: 99396; 99459

== ENCOUNTER → 2024-12-24 09:05 | Outpatient (BNVA) | payer OTHER, SELFPAY | PROVIDERS: PCP Internal Medicine; Visit Provider Advanced Practice Midwife ==

== ENCOUNTER 2025-08-19 09:13 | Outpatient (REF) | payer OTHER, SELFPAY ==
[2025-08-19 11:31] LABS: MANUAL DIFF FLAG NO
[2025-08-19 11:40] LABS: Hematocrit 43.1 % (37.0-47.0); Hemoglobin 14.1 g/dl (12.0-16.0); Imm Gran Abs Auto 0.01 X10*3/uL (0.00-0.03); Imm Gran Pct Auto 0.2 % (0.0-0.4); Lymphocytes Absolute Auto 1.5 X10*3/uL (1.2-4.9); Mean Corpuscular HGB Conc 32.7 g/dl (31.0-35.0); Mean Corpuscular Hemoglobin 28.1 pg (27.0-33.0); Mean Corpuscular Volume 86.0 fL (80.0-98.0); NRBC Abs Auto 0.000 X10*3/uL (0.0-0.012); NRBC Pct Auto 0.0 /100WBC (0.0-0.2); Platelet Count 263 X10*3/uL (160-400); Red Blood Count 5.01 X10*6/uL (4.20-5.50); White Blood Count 5.6 X10*3/uL (4.8-10.8)
[2025-08-19 12:15] LABS: Alanine Aminotransferase 16 U/L (0-31); Albumin Level 4.6 g/dL (3.5-5.0); Alkaline Phosphatase 39 U/L (39-117); Anion Gap 10 (12-20); Aspartate Amino Transferase 26 U/L (5-31); Blood Urea Nitrogen 13 mg/dL (9-16); Calcium 9.4 mg/dL (8.4-10.2); Carbon Dioxide 26 mmol/L (22-29); Chloride 107 mmol/L (96-108); Cholesterol 187 mg/dL (<200); Estimated Glomerular Filt Rate > 60; HDL Cholesterol 75 mg/dL (>40); Potassium 4.1 mmol/L (3.3-5.1); Sodium 139 mmol/L (135-145); Total Protein 7.0 g/dL (6.5-8.0); Triglycerides 39 mg/dL (<150)
[2025-08-19 14:20] LABS: Appearance Urine Clear; Glucose Urine UA Negative (Negative); PH 7.0 (5.0-9.0); Specific Gravity - Urine 1.015 (1.005-1.025)
== END 2025-08-19 09:14 | disposition home or self-care (01) ==
LOC: HO.WFDLDS 09:13
PROVIDERS: PCP Internal Medicine; Visit Provider Nurse Practitioner Family
DX: Z00.00 Encounter for general adult medical examination without abnormal findings (principal); R51.9 Headache, unspecified; Z79.899 Other long term (current) drug therapy
CPT/HCPCS: 36415; 80053; 80061; 81003; 82043; 82306; 82570; 84443; 85025; 96127

== ENCOUNTER 2025-08-19 09:13 | Outpatient (AMB) | payer OTHER, SELFPAY ==
--- NOTE | 2025-08-19 09:18 | MHC.PC.OV ---
Vital Signs 08/19/25 09:22 Height 5 ft 5 in Weight 153 lb 8 oz BMI 25.5 BP 117/56 L Blood Pressure Location Rt brachial Position Sitting Respiration 16 Pulse 67 Pulse Source Pulse Oximeter Temp 98.2 F Temp Source Temporal Artery Scan Pulse Oximetry (%) 100 Oxygen Delivery Method Room Air Intake Visit Reasons: Dr. Fall's Pt. Physical Intake Note: patient here for CPE/ Dr. Fall's patient Clerk Operator Required: No [place] Operator: Not Required per policy Is last menstrual period known: Yes Last menstrual period: 07/28/25 Post menopausal: No Patient : No Allergies No Known Allergies (No Known Allergies*) Allergy (Verified 08/19/25 09:40) Medication List - Last Reconciled 08/19/25 by Atilio Menezes CNP norethindrone (contraceptive) 0.35 mg PO DAILY 84 days Tobacco use date assessed: 08/19/25 Dental Screening Dental Screen Date: 08/19/25 Did you have a dental visit in the last 12 months?: Yes Did you have a dental problem in the last 6 months where you did not have access to dental care?: No Was dental information given to patient?: Patient has dentist HPI HPI Comments History of Present Illness Details 40-year-old female presents for an extended physical exam. She is on OCP.. She usually follows Dr. Fall. She has been fasting for at least 12 hours and will perform lab work after this visit. Acute issue(s) - Reports intermittent congestion to her right ear with right temporal headache for the past few month. She notes associated feeling of off-balance. Tylenol helps with the headache. No acute symptoms at this time. Past Medical History - Myopia, childhood asthma, palpitations, migraines, irregular menses, low back pain Social History - Nonsmoker. Does not vape. Drinks 1-2 glasses of wine few times monthly. Denies recreational drug use - Has been making healthy dietary choices. Exercises routinely. Generally sleep well Health maintenance - Last eye exam was in 12/2024 with [facility] : normal - Last dental visit was was last week - Last Tdap was in 01/09/2018 - Has not been vaccinated for the flu this season; declines vaccination - Last pap smear test was in 10/23/2021: Normal. She has an appointment with her stockroom associate in 10/2025 - Last mammogram was in 10/26/2023: Normal. She will call an schedule an appointment for a pap smear test Specialists - [facility] computer customer support specialist [facility] Medical History Migraine headache with aura Asthma Surgical History Dermoid cyst History of left oophorectomy Family History Father HTN (hypertension) Pacemaker Mother HTN (hypertension) Maternal Grandfather Colon cancer Social History Housing: House Alcohol intake: current Alcohol intake frequency: a few times a week Patient Tobacco Use Status: Never used Tobacco e-Cigarette/Vaping Use: Never Used service: No Current occupational status: employed 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 1. Little interest or pleasure in doing things: not at all 2. Feeling down, depressed, or hopeless: not at all 3. Trouble falling or staying asleep, or sleeping too much: not at all 4. Feeling tired or having little energy: not at all 5. Poor appetite or overeating: not at all 6. Feeling bad about yourself - or that you are a failure or have let yourself or your family down: not at all 7. Trouble concentrating on things, such as reading the newspaper or watching television: not at all 8. Moving or speaking so slowly that other people could have noticed. Or the opposite - being so fidgety or restless that you have been moving around a lot more than usual: not at all 9. Thoughts that you would be better off or of hurting yourself in some way: not at all Total score: 0 Depression Screening Interpretation: Negative Depression Screening Done: Yes 83990 - PHQ-9 Billing: Yes Source: Developed by Drs. Burt Magana, Teressa Bernard, Cesar Greenfield and colleagues, with an educational fatoumata from [employer]. Thrive Questionnaire Date Thrive assessed: 08/19/25 I am a: Patient What is your living situation today?: I have a steady place to live Within the past 12 months, did the food you bought not last and you didn't have the money to get more?: Never true Within the past 12 months, did you worry whether your food would run out before you got money to buy more?: Never true Do you have trouble paying for medicines?: No Do you have trouble getting transportation to medical appointments?: No Do you have trouble paying your heating and electricity bill?: No Do you have trouble taking care of your child, family member or friend?: No Do you have trouble with day-to-day activities such as bathing, preparing meals, shopping, managing finances, etc.?: No Are you currently unemployed and looking for a job?: No Are you interested in more education?: No Please select the resources that you would like help with: None Currently or been in a relationship where the following occur: No concerns reported THRIVE Score: 0 AUDIT C Alcohol Use Questionnaire (AUDIT-C) 1. How often do you have a drink containing alcohol?: 2-4 times a month 2. How many drinks containing alcohol do you have on a typical day when you are drinking?: 1 or 2 3. How often do you have six or more drinks on one occasion?: Never Total Score: 2 Score Reviewed/Action Taken: Yes ANNABELLE-7 AMB Questionnaire ANNABELLE-7 Date ANNABELLE - 7 assessed: 08/19/25 Feeling nervous, anxious, or on edge: 0 = Not at all Not being able to stop or control worryin = Not at all Worrying too much about different things: 0 = Not at all Trouble relaxin = Not at all Being so restless that it is hard to sit still: 0 = Not at all Becoming easily annoyed or irritable: 0 = Not at all Feeling afraid as if something awful might happen: 0 = Not at all Total ANNABELLE-7 score (0-4 normal; 5-9 mild; 10-14 moderate; 15-21 severe): 0 Source: Developed by Teressa Reid. Marco Antonio, Cesar Greenfield and colleagues, with an educational aftoumata from [employer]. ANNABELLE-7 Assessment Billing ANNABELLE-7 Assessment Tool: ANNABELLE-7 Assessment 64744 Review of Systems Const Details: Const Denies chills, Denies fatigue, Denies fever(s), Denies headache(s) and Denies weakness ENT Denies dizziness and Denies headache(s) Card Denies chest pain, Denies lightheadedness, Denies dyspnea and Denies other (Palpitations) Resp Denies cough, Denies dyspnea, Denies wheezing and Denies other ( shortness of breath) GI Denies abdominal pain, Denies melena, Denies hematochezia, Denies change in bowel habits, Denies dyspepsia and Denies nausea Denies hematuria and Denies dysuria Musc Denies abnormal gait, Denies myalgias, Denies arthralgias, Denies numbness and Denies tingling Skin/Breast Denies rash, Denies unusual bruising and Denies wounds Neuro Denies abnormal gait, Denies dizziness, Denies headache(s), Denies memory loss, Denies numbness, Denies Sensory deficit (Neuro), Denies tingling and Denies weakness Psych Denies anxiety, Denies depression, Denies memory loss Endo Denies cold intolerance, Denies fatigue, Denies heat intolerance, Denies polydipsia and Denies polyuria Aller/Immun Denies wheezing Physical exam (Primary Care) Vital Signs: Last Vital Signs Temp 98.2 F 08/19/25 09:22 Pulse 67 08/19/25 09:22 Resp 16 08/19/25 09:22 BP 117/56 L 08/19/25 09:22 Pulse Ox 100 08/19/25 09:22 Oxygen Delivery Method Room Air 08/19/25 09:22 BMI result Body Mass Index 25.5 Tobacco/Smoking Status: Tobacco use Status Tobacco use date assessed 08/19/25 08/19/25 09:25 Patient Tobacco Use Status Never used Tobacco 08/19/25 09:21 e-Cigarette/Vaping Use Never Used 08/19/25 09:21 PHQ-9: PHQ-9 Score PHQ-9: Total score 0 08/19/25 09:21 Depression Screening Interpretation: Negative Thrive Assessment: Date of Thrive Assessment Date Thrive assessed 08/19/25 08/19/25 09:21 Currently or been in a relationship where the following occur: No concerns reported Const Other: General: no acute distress and well developed Nutritional Appearance: well nourished Orientation/consciousness: patient oriented x3 [facility] Head: Yes normocephalic and Yes atraumatic Eyes General: appearance normal, both eyes and all related structures Pupils: Equal, round and reactive pupils present EOM: EOMs intact bilaterally Resp Effort & Inspection: normal respiratory effort Auscultation: clear to auscultation bilaterally Cardio Rate: regular rate Rhythm: regular rhythm Heart sounds: S1 normal heart sound present, S2 normal heart sound present, no gallops, no murmurs and no rubs GI Palpation (GI): No Abdominal aortic bruit present, Soft to palpation, nontender, No hepatosplenomegaly present and No Rebound tenderness present Auscultation: normal bowel sounds General: Yes no CVA tenderness Back/Spine/Pelvis Back: no CVA tenderness Cervical Spine: cervical ROM normal and No Cervical spine tenderness Thoracic/Lumbar Spine: thoraco-lumbar ROM normal, No pain with thoraco-lumbar ROM, No thoracic spinal tenderness and No lumbar spinal tenderness Extrem General: Yes normal to inspection, No edema and No calf tenderness Skin General: warm and dry. Normal skin color. Normal skin turgor Lesions: no lesions Rashes: no rashes Trauma: no lacerations or abrasions Wounds: no wounds Nails: normal Neuro General: patient oriented x3, gait normal and no focal neuro deficit Cranial nerves: Yes Equal, round and reactive pupils present Cognition (Neuro): normal cognition Gait exam (Neuro): Normal gait present Sensory Exam: No Sensory deficit (Neuro) Psych Appearance: grossly normal Affect: normal affect Attitude: cooperative Thought process: Normal thought process present Coding Level of Care Code Est Pt Level 3 (24990) Est Pt Prev Care 40-64y(64764) Diagnoses Normal physical exam Z00.00 Headache R51.9 Laboratory tests ordered as part of a complete physical exam (CPE) Z00.00 Additional Codes ANNABELLE-7 Assessment Billing - ANNABELLE-7 Assessment Tool: ANNABELLE-7 Assessment 06435 ([id number]) PHQ-9 - 27994 - PHQ-9 Billing: Yes ([id number]) Assessment & Plan Assessment & Plan (1) Normal physical exam: Code(s): Z00.00 - Encounter for general adult medical examination without abnormal findings Category: Medical Plan: No significant functional limitations noted. Healthy diet and routine exercise encouraged. Perform lab work and follow-up with PCP for a telehealth visit for labs review in 2-4 weeks. Return sooner with symptoms or concerns. Verbalized understanding and agreed with the plan. (2) Headache: Code(s): R51.9 - Headache, unspecified Category: Medical Plan: Reports intermittent congestion to her right ear with right temporal headache for the past few month. She notes associated feeling of off-balance. Tylenol helps with the headache. No acute symptoms at this time. Physical exam is benign. Likely related to allergies. May take an antihistamine such as Zyrtec daily. Tylenol ibuprofen for pain or discomfort. Follow-up with worsening or new symptoms. Verbalized understanding and agreed with the plan. (3) Laboratory tests ordered as part of a complete physical exam (CPE): Code(s): Z00.00 - Encounter for general adult medical examination without abnormal findings Category: Medical Plan: Fasting labs ordered as part of a complete physical exam. Advised to fast for at least 10 hours before getting labs drawn. May drink water Verbalized understanding and agreed with treatment plan. Orders: Orders Complete Blood Count Auto Diff Today Z00.00 - Encounter for general adult medical examination without abnormal findings Comprehensive Webster. Panel Fast Today Z00.00 - Encounter for general adult medical examination without abnormal findings TSH reflex Free T4 Today Z00.00 - Encounter for general adult medical examination without abnormal findings UA CC w/rflx Micro + Cult Today Z00.00 - Encounter for general adult medical examination without abnormal findings Lipid Panel Today Z00.00 - Encounter for general adult medical examination without abnormal findings Microalbumin, Random (w Creat) Today Z00.00 - Encounter for general adult medical examination without abnormal findings Vitamin D 25-OH Total Today Z00.00 - Encounter for general adult medical examination without abnormal findings
[2025-08-19 09:22] VITALS: BP 117/56; PULSE 67; RESP 16; TEMP 36.8; O2SAT 100; BMI 25.5
== END 2025-08-19 09:57 | disposition home or self-care (01) ==
LOC: HO.HMCFM 09:14
PROVIDERS: PCP Internal Medicine; Visit Provider Nurse Practitioner Family
DX: Z00.00 Encounter for general adult medical examination without abnormal findings (principal); R51.9 Headache, unspecified

== ENCOUNTER 2025-08-31 14:39 | Outpatient (REF) | payer OTHER, SELFPAY ==
--- OUTSIDE RECORDS SUMMARY | 2025-08-31 19:35 | XMS_ITS | Clinical Summary ---
Author Organization [facility] Address [address] [place] [id number] Phone Care Team Providers Care Skiver Blockers Name Role Phone Paige Urbano MD Primary Care Provider Allergies No known active allergies Medications norethindrone (MICRONOR) 0.35 mg tablet 11/15/2020 Active Active Problems No known active problems Encounters Date Type Department Care Team Description 06/03/2025 4:30 PM EDT Office Visit [facility] at [address] [address] Erin Borrero CNP Facial laceration, initial encounter (Primary Dx) from Last 3 Months Immunizations Immunization Administration Dates Next Due Influenza Quadrivalent Preservative Free IM 08/16 Influenza Quadrivalent w/ Preservative IM 2018 Tdap 01/09/2018,03/07/2016 Social History Tobacco Use Types Packs/Day Years Used Date Smoking Tobacco: Never Smokeless Tobacco: Never Education Answer Date Recorded Are you interested in more education? Not on solo e 01/10/2023 Are you concerned about learning? Not on file 01/10/2023 No 01/10/2023 No 01/10/2023 Digital Access Answer Date Recorded No 02/08/2023 No 02/08/2023 Reliable internet access at home? Not on file 02/08/2023 Device with a working camera? Not on file Comments Unknown Sex and Gender Information Value Date Recorded Sex Assigned at Not on file Legal Sex Female 9:38 AM EST Gender Identity Not on file Sexual Orientation Not on file Last Filed Vital Signs Vital Sign Reading Time Taken Comments Blood Pressure 128/78 06/03/2025 4:27 PM EDT Pulse 78 06/03/2025 4:27 PM EDT Temperature 37.2 C (99 F) 06/03/2025 4:27 PM EDT Respiratory Rate 18 06/03/2025 4:27 PM EDT Oxygen Saturation 100% 06/03/2025 4:27 PM EDT Inhaled Oxygen Concentration - - Weight 67.1 kg (148 lb) 11/19/2020 10:02 AM EST Height 165.1 cm (5' 5 ) 11/19/2020 10:02 AM EST Body Mass Index 24.63 11/19/2020 10:02 AM EST Plan of Treatment Health Maintenance Due Date Last Done Comments DEPRESSION SCREENING 1995 HEPATITIS C SCREENING 2001 HIV ONE-TIME SCREENING (18-6 5 YEARS) 2001 PAP SMEAR 2004 MAMMOGRAM 2023 INFLUENZA VACCINE (#1) 2025 9, 09/05/2017 COVID-19 VACCINE (3 - 2024-2 6 season) 2025 02/20/2021, 01/30/2021 Adult Td,Tdap Booster 01/10/2028 01/09/2018 , 03/07/2016 SMOKING STATUS SCREENING (On ce After 26 Yrs) Completed 08/27/2023 HEPATITIS A VACCINES Aged Out No long er eligible based on patient's age to complete this topic HIB VACCINES Aged Out No longer eligi ble based on patient's age to complete this topic MENINGOCOCCAL VACCINES (ACWY) Aged Out No longer eligible based on patient's age to complete this topic MENINGOCOCCAL VACCINES (B) Aged Out N o longer eligible based on patient's age to complete this topic PNEUMOCOCCAL VACCINES (0-49 years) Aged Out No longer eligible b ased on patient's age to complete this topic Medical Devices Not on file [facility] [employer] PPO Member Subscriber Plan / Payer ( fective 2005-Present) Name:Zaira Vasquez Relation to Subscriber:Self Name:Zaira Vasquez Payer ID:[id number] ([facility]) Type:PPO Address: [address] [place] [id number] [employer] PPO Member Subscriber Plan / Payer ( fective 2005-Present) Name:Zaira Vasquez Relation to Subscriber:Self Name:Zaira Vasquez Payer ID:[id number] ([facility]) Type:PPO Address: [address] [place] [id number] [place] [id number] [employer] PPO [employer] PPO [employer] P[employer] PPO [employer] PPO Care Teams Skiver Blockers Relationship Specialty Start Date End Date Paige Urbano MD PCP - General Internal Medicine 06/03/25 Additional Source Comments The information contained in this document represents components of the legal health record. It is not the complete legal health record.[facility]
--- OUTSIDE RECORDS SUMMARY | 2025-08-31 19:35 | XMS_ITS | Clinical Summary ---
Author Organization [facility] Address [address] [place] [address] Care Team Providers Care Director Account Management Name Role Phone Pcp, No Primary Care Provider Unavailabl e Allergies No known active allergies Social History Tobacco Use Types Packs/Day Years Used Date Smoking Tobacco: Never Assessed Comments Unknown Sex and Gender Information Value Date Recorded Sex Assigned at Not on file Legal Sex Female 7:09 PM EST Gender Identity Not on file Sexual Orientation Not on file Last Filed Vital Signs Vital Sign Reading Time Taken Comments Blood Pressure 125/76 10/10/2020 11:34 AM EST Pulse 89 10/10/2020 11:34 AM EST Temperature 36.8 C (98.3 F) 10/10/2020 11:34 AM EST Respiratory Rate - - Oxygen Saturation 98% [...] (Ages 21-65) 2004 Mammogram 2023 Influenza Vaccine 04/15/2025 COVID-19 Vaccine ( - 2024-2 6 season) 2025 HPV Vaccines (No Doses Required) Completed Pneumococcal Vaccine: Pediat shruti (0-5 Years) and At-Risk Patients (6 to 49 Years) Aged Out No longer eligible b ased on patient's age to complete this topic Insurance [facility] HMO Care Teams Director Account Management Relationship Specialty Start Date End Date Pcp, No PCP - General General Medicine 10/02/20
== END 2025-08-31 14:40 | disposition home or self-care (01) ==
LOC: HO.MAMMO 14:39
PROVIDERS: PCP Internal Medicine; Visit Provider Internal Medicine
DX: Z12.31 Encounter for screening mammogram for malignant neoplasm of breast (principal)
CPT/HCPCS: 77063; 77067

== ENCOUNTER → 2025-08-31 14:45 | Outpatient (BNV) | payer OTHER, SELFPAY | PROVIDERS: PCP Internal Medicine; Visit Provider Radiology Body Imaging | DX: Z12.31 Encounter for screening mammogram for malignant neoplasm of breast (principal) | CPT/HCPCS: 77063; 77067 ==

== ENCOUNTER → 2025-09-02 16:08 | Outpatient (AMB) | payer OTHER, SELFPAY ==
--- NOTE | 2025-09-02 15:15 | A.OFFPC_ITS ---
Intake Visit Reasons: 2-[address] labs review [address] Cheung Intake Note: Follow up lab results. Telephone Messenger Required: No Allergies No Known Allergies (No Known Allergies*) Allergy (Verified 09/02/25 15:50) Tobacco use date assessed: 09/02/25 Dental Screening Dental Screen Date: 08/19/25 HPI HPI Comments History of Present Illness Details 39 year old female with a past medical h istory of migraines, muscle cramping, presenting for follow up At her last visit she had the following concerns -Reports muscle cramping in bilateral lo wer and upper legs. Not restless. Crampy, sore. No significant spasms. Has chronic low back discomfort, not severe. No numbness, tingling or weakness in the legs/feet-she had xray of the lumbar spine performed. This was normal with the exception of mild lumbosacral curvature. -Patient reports feeling fullness and pa in in her underarms. Denies pimples, cysts or drainage. Her ultrasound showed a slightly enlarged but morphologically normal lymph node -Patient reports that menses have change d over the past few years. She gets more pain, more clotting. Still menstruating monthly. She had pelvic ultrasound with benign right ovary cyst and non visualization of the left ovary. She has history of left oopherectomy in 2013 She has been having night sweats. Following with [facility]. She would like to check hormone levels. Recent labs were normal. Her iron continues to be on the high normal. sat is elevated. Previous HH testing was negative Her mammogram is up to date ROS see HPI PHYSICAL EXAM: telehealth [facility] Medical History Migraine headache with aura Asthma Surgical History Dermoid cyst History of left oophorectomy Family History Father HTN (hypertension) Pacemaker Mother HTN (hypertension) Maternal Grandfather Colon cancer Social History (Updated 09/02/25 @ 15:51 by Miriam Ordoñez CMA) Housing: House Alcohol intake: current Alcohol intake frequency: a few times a week Patient Tobacco Use Status: Never used Tobacco e-Cigarette/Vaping Use: Never Used service: No Current occupational status: employed 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 Current occupational exposures/hazards: No Sexual orientation: Straight/Heterosexual Gender identity: Female Cognitive needs: No Hearing needs: No Vision needs: No Female Reproductive History Menstrual Age of Menarche: 14 Questionnaire Thrive Questionnaire Date Thrive assessed: 08/19/25 I am a: Patient What is your living situation today?: I have a steady place to live Within the past 12 months, did the food you bought not last and you didn't have the money to get more?: Never true Within the past 12 months, did you worry whether your food would run out before you got money to buy more?: Never true Do you have trouble paying for medicines?: No Do you have trouble getting transportation to medical appointments?: No Do you have trouble paying your heating and electricity bill?: No Do you have trouble taking care of your child, family member or friend?: No Do you have trouble with day-to-day activities such as bathing, preparing meals, shopping, managing finances, etc.?: No Are you currently unemployed and looking for a job?: No Are you interested in more education?: No Please select the resources that you would like help with: None Currently or been in a relationship where the following occur: No concerns reported THRIVE Score: 0 AUDIT C Alcohol Use Questionnaire (AUDIT-C) 1. How often do you have a drink containing alcohol?: Monthly or less 2. How many drinks containing alcohol do you have on a typical day when you are drinking?: 1 or 2 3. How often do you have six or more drinks on one occasion?: Never Total Score: 1 ANNABELLE-7 AMB Questionnaire ANNABELLE-7 Date ANNABELLE - 7 assessed: 08/19/25 Source: Developed by Drs. Burt Magana, Teressa Bernard, Cesar Greenfield and colleagues, with an educational fatoumata from [employer]. Physical exam (Primary Care) Tobacco/Smoking Status: Tobacco use Status Tobacco use date assessed 09/02/25 09/02/25 15:16 Patient Tobacco Use Status Never used Tobacco 09/02/25 15:51 e-Cigarette/Vaping Use Never Used 09/02/25 15:51 Thrive Assessment: Date of Thrive Assessment Date Thrive assessed 08/19/25 09/02/25 15:16 Currently or been in a relationship where the following occur: No concerns reported Telehealth Telehealth Telehealth Platform: Telephone Location of provider rendering services: practice address Location of patient: address on file Patient Identification confirmed using: Name, : No Telehealth method: voice only Patient verbally consented to billing insurance company: Yes Patient informed of any privacy concerns related to visit: Yes Minutes spent on Phone/Video with Pt.: 32 Coding Level of Care Code Tele Est Pt Level 4 (38642) Diagnoses Iron excess E83.19 Irregular menses N92.6 Night sweats R61 Assessment & Plan Assessment & Plan (1) Iron excess: Code(s): E83.19 - Other disorders of iron metabolism Category: Medical (2) Irregular menses: Code(s): N92.6 - Irregular menstruation, unspecified Category: Medical (3) Night sweats: Comment: vs hot flashes at night Code(s): R61 - Generalized hyperhidrosis Category: Medical Plan Reviewed recent labs Iron is still high normal with mild elevated sat-she does have symptoms of iron excess-I'll have her see hematology for consultation Dense breasts-axillary fullness-MRI ordered Irregular menses-LH and estradiol ordered Orders: Orders Lutenizing Hormone Today R61 - Generalized hyperhidrosis Estradiol Ultra Sensitive Today R61 - Generalized hyperhidrosis MR breast BI wo/w con 09/02/25 R92.343 - Mammographic extreme density, bilateral breasts Referrals Hematology & Oncology Referral E83.19 - Other disorders of iron metabolism
--- OUTSIDE RECORDS SUMMARY | 2025-09-02 16:45 | XMS_ITS | Clinical Summary ---
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 Name Role Phone Paige Urbano MD Primary Care Provider Allergies No known active allergies Medications norethindrone (MICRONOR) 0.35 mg tablet 11/15/2020 Active Active Problems No known active problems Encounters Date Type Department Care Team Description 06/03/2025 4:30 PM EDT Office Visit [facility] at [address] [address] Erin Borrero CNP Facial laceration, initial encounter [...] topic Medical Devices Not on file [facility] [employer] PPO Member Subscriber Plan / Payer ( fective 2005-Present) Name:Zaira Vasquez Relation to Subscriber:Self Name:Zaira Vasquez Payer ID:[id number] ([facility]) Type:PPO Address: [address] [place] [id number] [employer] PPO Member Subscriber Plan / Payer ( fective 2005-Present) Name:Zaira Vasquez Relation to Subscriber:Self Name:Zaira Vasquez Payer ID:[id number] ([facility]) Type:PPO Address: [address] [place] [id number] [place] [id number] [employer] PPO [employer] P[employer] P[employer] P[employer] P[employer] Care Teams Line Painting Machine Operator Relationship Specialty Start Date End Date Paige Urbano MD PCP - General Internal Medicine 06/03/25 Additional Source Comments The information contained in this document represents components of the legal health record. It is not the complete legal health record.[facility]
--- OUTSIDE RECORDS SUMMARY | 2025-09-02 16:45 | XMS_ITS | Clinical Summary ---
Author Organization [facility] Address [address] [place] [id number] Care Team Providers Care Roll Over Press Operator Name Role Phone Pcp, No Primary Care [...] patient's age to complete this topic Insurance [facility] HMO Care Teams Roll Over Press Operator Relationship Specialty Start Date End Date Pcp, No PCP - General General Medicine 10/02/20
== END ==
LOC: HO.HMCFM 16:08
PROVIDERS: PCP Internal Medicine; Visit Provider Internal Medicine
DX: E83.19 Other disorders of iron metabolism (principal); N92.6 Irregular menstruation, unspecified; R61 Generalized hyperhidrosis; R92.343 Mammographic extreme density, bilateral breasts

== ENCOUNTER 2025-09-05 09:18 | Outpatient (REF) | payer OTHER, SELFPAY ==
--- OUTSIDE RECORDS SUMMARY | 2025-09-05 10:24 | XMS_ITS | Clinical Summary ---
Author Organization [facility] Address [address] [place] [address] Care Team Providers Care Electronic Warfare Technical Name Role Phone Pcp, No Primary Care [...] patient's age to complete this topic Insurance [facility] HMO Care Teams Electronic Warfare Technical Relationship Specialty Start Date End Date Pcp, No PCP - General General Medicine 10/02/20
--- OUTSIDE RECORDS SUMMARY | 2025-09-05 10:24 | XMS_ITS | Clinical Summary ---
Author Organization [facility] Address [address] [place] [address] Phone Care Team Providers Care Transportation Department Head Name Role Phone aPige Urbano MD Primary Care Provider Allergies No known active allergies Medications norethindrone (MICRONOR) 0.35 mg tablet 11/15/2020 Active Active Problems No known active problems Immunizations Immunization Administration Dates Next Due Influenza [...] topic Medical Devices Not on file Insurance [employer] P[employer] P[employer] P[employer] PPO [employer] P[employer] P[employer] P[employer] Member Subscriber Plan / Payer ( fective 2005-Present) Name:Zaira Vasquez Relation to Subscriber:Self Name:Zaira Vasquez Payer ID:[id number] ([facility]) Type:PPO Address: [address] [place] [id number] [employer] PPO [employer] P[employer] Care Teams Transportation Department Head Relationship Specialty Start Date End Date Paige Urbano MD PCP - General Internal Medicine 06/03/25 Additional Source Comments The information contained in this document represents components of the legal health record. It is not the complete legal health record.[facility]
== END 2025-09-05 09:19 | disposition home or self-care (01) ==
LOC: HO.WFDLDS 09:18
PROVIDERS: Visit Provider Internal Medicine
DX: R61 Generalized hyperhidrosis (principal)
CPT/HCPCS: 36415; 82670; 83002